=== PATIENT | male | born 1930 | race Caucasian/White ===

== ENCOUNTER → 2016-11-18 | Outpatient (CLI) | payer MEDICARE, OTHER ==
[~2016-11-18] MED LIST: AMOXICILLIN875 MG PO; CIPRO DPS500 MG PO; LISINOPRIL40 MG PO; TENORMIN-DPS25 MG PO; ULTRAM DPS50 MG PO
== END | disposition home or self-care (01) ==
LOC: RAD.S 09:42
DX: M48.56XS Collapsed vertebra, not elsewhere classified, lumbar region, sequela of fracture (principal); M47.814 Spondylosis without myelopathy or radiculopathy, thoracic region